=== PATIENT | male | born 1950 | race Caucasian/White ===

== ENCOUNTER 2023-11-30 13:55 | Emergency (ER) | payer MEDICARE, SELFPAY ==
[2023-11-30 14:10] VITALS: BP 157/79; PULSE 84; RESP 20; TEMP 36.8; O2SAT 97; BMI 31.6
--- NOTE | 2023-11-30 14:28 | ED_ITS ---
Discharge Plan Disposition Patient Disposition: Home, Self-Care Condition: Good Prescriptions Prescriptions: New clindamycin HCl 300 mg capsule 300 mg PO Q8H 10 Days Qty: 30 0RF No Action lovastatin 40 mg tablet 40 mg PO DAILY ginkgo biloba leaf extract 60 mg capsule 60 mg PO BID Rx Instructions: give with meal/snack lorazepam 0.5 mg tablet 0.5 mg PO DAILY PRN (Reason: Anxiety) nitroglycerin [Nitro-Dur] 0.4 mg/hr patch 24 hour 1 patch transdermal DAILY Rx Instructions: allow nitrate-free interval of approx. 10-12 hrs per 24-hour period omeprazole 20 mg capsule,delayed release(DR/EC) 20 mg PO DAILY tamsulosin [Flomax] 0.4 mg capsule 0.4 mg PO DAILY timolol 0.5 % drops 1 drp OPHTHALMIC BID levothyroxine 25 mcg tablet 25 mcg PO DAILY lisinopril 20 mg tablet 20 mg PO DAILY aspirin 325 mg tablet 325 mg PO DAILY metoprolol tartrate 25 mg tablet 12.5 mg PO BID Referrals Follow up/Referrals: Sindy Carey APRN [Nurse Practitioner] - 12/01/23 10:15 am Doug Stewart [Primary Care Provider] - See instructions Activity Restrictions/Add. Instructions Additional Instructions/Restrictions: Follow up with Podiatry for further treatment and evaluation Take antibiotics as prescribed Clean wound well with antibacterial soap and water Over the counter Motrin and/or Tylenol for pain and fever You was given appointment tomorrow for Podiatry, keep appointment for further evaluation and treatment Clinical Impressions Clinical Impression: Puncture wound, Cellulitis Instructions Patient Instructions: Cellulitis, Clindamycin, DI for Puncture Wound Discharge ED Provider: Jane Rogers [facility] General Stated complaint: stepped on steel hook Mode of Arrival: Ambulatory Source of Information: Patient Limitations: No Limitations Time Seen by Provider: 11/30/23 14:15 Description of Symptoms (Recalled from Triage Doc. by RN): PATIENT STATES HE STEPPED ON A HOOK WITH RIGHT FOOT ON TUESDAY AFTERNOON. PATIENT IS DIABETIC HEENT Symptoms (Recalled from RN notes): No Resp Symptoms (Recalled from RN notes): No Skin Symptoms (Recalled from RN notes): Yes MS Symptoms (Recalled from RN notes): No Functional Status (Recalled from RN notes): WNL History of Present Illness Provider Complaint: Patient states that he was walking in his house on Tuesday and was wearing shoes when he stepped on a metal wall hook that holds stuff on the wall and it went through the bottom of his shoe into his foot and he had to pull it out of his foot and the hook was intact, States that since then he has been soaking it in warm water and epson salt but it has continued to hurt and now having some swelling and redness States that he is a diabetic and worried about it being infected Related Data Home Medications Medication Instructions Recorded Confirmed aspirin 325 mg tablet 325 mg PO DAILY 05/25/18 11/30/23 levothyroxine 25 mcg tablet 25 mcg PO DAILY 05/25/18 11/30/23 lisinopril 20 mg tablet 20 mg PO DAILY 05/25/18 11/30/23 omeprazole 20 mg capsule,delayed 20 mg PO DAILY 05/25/18 11/30/23 release tamsulosin 0.4 mg capsule (Flomax) 0.4 mg PO DAILY 05/25/18 11/30/23 timolol 0.5 % eye drops 1 drp ophthalmic (eye) BID 05/25/18 11/30/23 metoprolol tartrate 25 mg tablet 12.5 mg PO BID 05/30/18 11/30/23 ginkgo biloba leaf extract 60 mg 60 mg PO BID 10/06/23 11/30/23 capsule lorazepam 0.5 mg tablet 0.5 mg PO DAILY PRN Anxiety 10/06/23 11/30/23 lovastatin 40 mg tablet 40 mg PO DAILY 10/06/23 11/30/23 nitroglycerin 0.4 mg/hr 1 patch transdermal DAILY 10/06/23 11/30/23 transdermal 24 hour patch (Nitro-Dur) Previous Rx's Medication Instructions Recorded clindamycin HCl 300 mg capsule 300 mg PO Q8H 10 days #30 caps 11/30/23 Allergies Allergy/AdvReac Type Severity Reaction Status Date / Time morphine AdvReac Severe Verified 10/06/23 08:37 Worker's Comp Is this a Worker's Comp case?: No [facility] Disclaimer: The information contained in this section may have been updated after the patient was seen, as this information can be updated by other users. Social History Smoking Status: Unknown if ever smoked alcohol intake: never substance use type: denies use current occupational status: retired Travel in the last 8 weeks: None ROS Obtained: Yes All systems reviewed & no additional complaints except as documented and Yes Systems reviewed as appropriate & no additional complaints except as documented Constitutional Constitutional: Reports system reviewed and no additional complaints, except as documented and Reports as per HPI ENT Ears, Nose, Mouth, and Throat: Reports system reviewed and no additional complaints, except as documented and Reports as per HPI Cardiovascular Cardiovascular: Reports system reviewed and no additional complaints, except as documented and Reports as per HPI Respiratory Respiratory: Reports system reviewed and no additional complaints, except as documented and Reports as per HPI Gastrointestinal Gastrointestingal: Reports system reviewed and no additional complaints, except as documented and as per HPI Musculoskeletal Musculoskeletal: Reports system reviewed and no additional complaints, except as documented and Reports as per HPI Integumentary/Breasts Skin/Breast: Reports system reviewed and no additional complaints, except as documented and Reports as per HPI Comments: Stepped on metal hook at home on Tuesday and it went into the bottom of his shoe and into foot Neurologic Neurologic: Reports system reviewed and no additional complaints, except as documented and Reports as per HPI Physical Exam General General appearance: alert and in no apparent distress Respiratory Respiratory exam: Present normal lung sounds bilaterally; Absent respiratory distress or wheezes Cardiovascular Cardiovascular exam: Present regular rate, normal rhythm and normal heart sounds Expanded Lower Extremity Exam Right: Foot/toe exam: Present swelling and puncture wound Bottom foot image: 2 1. small puncture wound noted, mild swelling and redness noted Neurological Exam Neurological exam: Present alert, oriented X3 and normal gait Medical Decision Making Daron Inquiry Pt receiving controlled substance: No Daron was queried for this patient: No Vital Signs: 11/30/23 14:10 Temperature 98.2 F Temperature Source Oral Pulse Rate [Left Brachial] 84 Respiratory Rate 20 Blood Pressure [Left Arm] 157/79 H Blood Pressure Mean [Left Arm] 105 Blood Pressure Source [Left Arm] Automatic Cuff Blood Pressure Position [Left Arm] Sitting 02 Sat by Pulse Oximetry 97 Oxygen Delivery Method Room Air Medical Decision Narrative: Discussed with patient and recomended xray of foot patient refused patient educated on importance of xray and possibly of serious infection in foot including but not limited too osteomylitis and he still declined States he just wants some antibitoics Patient sees Podiatry Clinic appointment made for tomorrow and patient informed he would need to get xray for them to see him and he is still refusing at this time
[2023-11-30 14:52] VITALS: BP 157/79; PULSE 84; RESP 20; TEMP 36.8; O2SAT 97
[2023-11-30] MEDS: TET/DIPHTH/PERT-ADULT 0.5ML SYRINGE 0.5 ML IM (15:05)
--- NOTE | 2023-11-30 15:15 | PC.NURSE ---
DRY DRESSING APPLIED TO RIGHT FOOT
== END 2023-11-30 15:15 | disposition home or self-care (01) ==
PROVIDERS: Emergency Provider Nurse Practitioner; PCP Family Medicine
DX: S91.331A Puncture wound without foreign body, right foot, initial encounter (principal); L03.115 Cellulitis of right lower limb; Z23 Encounter for immunization; W45.0XXA Nail entering through skin, initial encounter
CPT/HCPCS: 90471; 90715; 99204; 99212; G0463

== ENCOUNTER 2023-12-01 12:12 | Outpatient (CLI) | payer MEDICARE, SELFPAY ==
--- NOTE | 2023-12-01 12:57 | XR_ITS ---
FINAL REPORT CLINICAL HISTORY: Right foot Pain COMPARISON: None FINDINGS: RIGHT FOOT: Three views of the right foot were obtained. Artifact overlies foot. There is no acute fracture or dislocation. There is mild degenerative change. Calcaneal spurs are noted. There is no soft tissue abnormality. IMPRESSION: Mild degenerative change without acute bony abnormality. Calcaneal spurs. Reviewed, Interpreted and Dictated by Malick Marcelino III, MD Transcribed by Eliza Cameron Authenticated and [facility]
[2023-12-01 13:02] LABS: Basophils % 0.3 % (0.1-2.0); Eosinophils # 0.1 K/mm3 (0.0-0.4); Eosinophils % 0.8 % (0.1-12.0); Hematocrit 43.6 % (42.0-52.0); Hemoglobin 13.9 g/dL (14.1-18.0); Lymphocytes # 1.5 K/mm3 (0.7-4.5); Lymphocytes % 12.6 % (10-50); Mean Corpuscular HGB Conc 31.8 g/dL (31.8-35.4); Mean Corpuscular Hemoglobin 29.5 pg (27.0-31.2); Mean Corpuscular Volume 92.7 fl (80-94); Mean Platelet Volume 8.6 fl (7.4-10.4); Monocytes # 0.8 K/mm3 (0.1-1.0); Monocytes % 6.8 % (1.7-9.3); Neutrophils # 9.3 K/mm3 (1.8-7.8); Neutrophils % 79.4 % (37.0-80.0); Platelet Count 129 K/mm3 (142-424); Red Cell Distribution Width 14.1 % (11.5-17.5); White Blood Count 11.7 K/mm3 (4.8-10.8)
[2023-12-01 13:27] LABS: Hemoglobin A1C 6.8 % (4.0-6.0)
[2023-12-01 13:34] LABS: Alanine Aminotransferase 21 U/L (12-78); Albumin Level 3.7 g/dl (3.5-5.0); Albumin/Globulin Ratio 1.4 (1.1-1.8); Alkaline Phosphatase 123 U/L (38-126); Anion Gap 9.4 mEq/L (5-15); Aspartate Amino Transferase 24 U/L (17-59); Blood Urea Nitrogen 18 mg/dl (9-20); Calcium 8.8 mg/dl (8.4-10.2); Carbon Dioxide 28 mmol/L (22.0-30.0); Chloride 105 mmol/L (98-107); Estimated Glomerular Filt Rate 95 ml/min (>60); GFR (African American) 115 ML/MIN (>60); Globulin 2.6 g/dL (1.3-3.2); Glucose 198 mg/dl (74-100); Potassium 4.4 mmoL/L (3.5-5.1); Sodium 138 mmol/L (136-145); Total Protein,Serum 6.3 g/dl (6.3-8.2)
[2023-12-01 13:41] LABS: C-Reactive Protein 212.3 mg/L (0-4)
[2023-12-01 14:08] LABS: Erythrocyte Sedimentation Rate 22 mm/hr (0-20)
== END 2023-12-01 23:59 ==
LOC: LAB 12:14
PROVIDERS: PCP Family Medicine; Visit Provider Nurse Practitioner
DX: E11.621 Type 2 diabetes mellitus with foot ulcer; L97.519 Non-pressure chronic ulcer of other part of right foot with unspecified severity; M79.671 Pain in right foot
CPT/HCPCS: 36415; 73630; 80053; 83036; 85025; 85651; 86140

== ENCOUNTER 2023-12-05 18:00 | Outpatient (CLI) | payer MEDICARE, SELFPAY | END 2023-12-05 23:59 | LOC: LAB.DROPOF 18:00 | PROVIDERS: PCP Nurse Practitioner; Visit Provider Nurse Practitioner | DX: T14.8XXA Other injury of unspecified body region, initial encounter (principal); L03.115 Cellulitis of right lower limb; L53.9 Erythematous condition, unspecified | CPT/HCPCS: 87070; 87205 ==

== ENCOUNTER 2023-12-20 09:50 | Outpatient (CLI) | payer MEDICARE, SELFPAY ==
[2023-12-20 10:12] LABS: Basophils # 0.1 K/mm3 (0-0.2); Basophils % 1.2 % (0.1-2.0); Eosinophils # 0.2 K/mm3 (0.0-0.4); Eosinophils % 2.5 % (0.1-12.0); Hemoglobin 15.4 g/dL (14.1-18.0); Lymphocytes # 1.4 K/mm3 (0.7-4.5); Lymphocytes % 23.1 % (10-50); Mean Corpuscular HGB Conc 34.3 g/dL (31.8-35.4); Mean Corpuscular Volume 93.2 fl (80-94); Mean Platelet Volume 9.3 fl (7.4-10.4); Monocytes # 0.3 K/mm3 (0.1-1.0); Monocytes % 5.8 % (1.7-9.3); Neutrophils % 67.3 % (37.0-80.0); Platelet Count 150 K/mm3 (142-424); Red Blood Count 4.82 M/mm3 (4.60-6.20); Red Cell Distribution Width 14.2 % (11.5-17.5); White Blood Count 5.9 K/mm3 (4.8-10.8)
[2023-12-20 10:29] LABS: Chloride 106 mmol/L (98-107)
[2023-12-20 10:30] LABS: Potassium 4.5 mmoL/L (3.5-5.1); Sodium 140 mmol/L (136-145)
[2023-12-20 10:32] LABS: Alanine Aminotransferase 32 U/L (12-78); Aspartate Amino Transferase 40 U/L (17-59); Blood Urea Nitrogen 17 mg/dl (9-20); Estimated Glomerular Filt Rate 73 ml/min (>60); GFR (African American) 89 ML/MIN (>60)
[2023-12-20 10:33] LABS: Albumin Level 3.9 g/dl (3.5-5.0); Albumin/Globulin Ratio 1.2 (1.1-1.8); Alkaline Phosphatase 119 U/L (38-126); Anion Gap 8.5 mEq/L (5-15); Bilirubin,Total 0.7 mg/dl (0.2-1.3); Calcium 9.3 mg/dl (8.4-10.2); Carbon Dioxide 30 mmol/L (22.0-30.0); Globulin 3.3 g/dL (1.3-3.2); Glucose 191 mg/dl (74-100); Total Protein,Serum 7.2 g/dl (6.3-8.2)
[2023-12-20 10:38] LABS: C-Reactive Protein 12.1 mg/L (0-4)
[2023-12-20 10:39] LABS: Hemoglobin A1C 7.2 % (4.0-6.0)
[2023-12-20 11:10] LABS: Erythrocyte Sedimentation Rate 36 mm/hr (0-20)
--- NOTE | 2023-12-20 15:00 | CT_ITS ---
FINAL REPORT TECHNIQUE: Thin section axial CT images with coronal and sagittal reformats were performed. This study was performed with techniques to keep radiation doses as low as reasonably achievable (ALARA). Individualized dose reduction techniques using automated exposure control or adjustment of mA and/or kV according to the patient's size were employed. CLINICAL HISTORY: Cellulitis of right foot COMPARISON: None FINDINGS: There is mild subcutaneous soft tissue edema over the dorsum of the foot. The mortise is intact. There are moderate hypertrophic changes of the dorsal talonavicular joint. There is no evidence of bony erosion or periosteal reaction. IMPRESSION: Mild edema over the dorsum of the foot. No evidence of bony erosion or periosteal reaction. Reviewed, Interpreted and Dictated by Rudy Miller MD Transcribed by Eliza Cameron Authenticated and [facility]
[2023-12-20] MEDS: IOPAMIDOL-370 (76%);100ML BOTTLE 75 ML IV (15:16)
== END 2023-12-20 23:59 ==
LOC: RAD 09:53
PROVIDERS: PCP Family Medicine; Visit Provider Nurse Practitioner
DX: M79.671 Pain in right foot; L03.115 Cellulitis of right lower limb; T14.8XXA Other injury of unspecified body region, initial encounter; E11.9 Type 2 diabetes mellitus without complications
CPT/HCPCS: 36415; 73702; 80053; 83036; 85025; 85651; 86140; Q9967